=== PATIENT | male | born 1980 | race American Indian/Alaskan Native ===

== ENCOUNTER 2016-11-04 11:07 | Emergency (ER) | payer BC ==
[2016-11-04 12:13] LABS: Basophils % (Auto) 0.4 % (0.0-1.8); Eosinophils % (Auto) 0.1 % (0.0-4.3); Hematocrit 49.7 % (35.5-45.6); Hemoglobin 17.4 gm/dl (11.8-15.2); Mean Corpuscular HGB Conc 35 % (32-34); Mean Corpuscular Hemoglobin 30 pg (28-32); Mean Corpuscular Volume 87 fl (84-94); Platelet Count 144 K/mm3 (140-440); Red Blood Count 5.73 M/mm3 (3.65-5.03); Red Cell Distribution Width 13.2 % (13.2-15.2); White Blood Count 3.8 K/mm3 (4.5-11.0)
[2016-11-04 12:23] LABS: Alanine Aminotransferase 56 units/L (7-56); Albumin 4.8 g/dL (3.9-5); Albumin/Globulin Ratio 1.5 %; Alkaline Phosphatase 53 units/L (35-129); Anion Gap 18 mmol/L; BUN/Creatinine Ratio 13.33; Bilirubin,Total 0.4 mg/dL (0.1-1.2); Blood Urea Nitrogen 12 mg/dL (9-20); Calcium 9.3 mg/dL (8.4-10.2); Carbon Dioxide 25 mmol/L (22-30); Chloride 93.9 mmol/L (98-107); Glucose 97 mg/dL (75-100); Lipase 29 units/L (13-60); Potassium 4.4 mmol/L (3.6-5.0); Sodium 132 mmol/L (137-145)
[2016-11-04 12:56] LABS: Bilirubin,Urine NEG (Negative); Blood,Urine SM (Negative); Ketones,Urine TR mg/dL (Negative); Leukocyte Esterase,Urine NEG (Negative); Mucus,Urine 1+ /HPF; Nitrite,Urine NEG (Negative); Urobilinogen,Urine < 2.0 mg/dL (<2.0)
[2016-11-04] MEDS ORDERED: BENTYL IM ONE (14:17)
[2016-11-04] MEDS ORDERED: TYLENOL PO ONE (14:17)
[2016-11-04] MEDS ORDERED: ZOFRAN IV ONE (14:17)
[2016-11-04] MEDS ORDERED: NACL 0.9% 1000 ML 1,000 ML IV ONE (14:17)
[2016-11-04] MEDS ORDERED: ALUM-MAG HYDROX-SIMETH 200-200-20MG/5ML PO ONE (14:17)
[2016-11-04] MEDS ORDERED: TORADOL IV ONE (14:17)
[2016-11-04] MEDS ORDERED: PEPCID IV ONE (14:17)
--- NOTE | 2016-11-04 14:17 | Emergency Department Report ---
ED General Adult HPI - General Chief complaint: Abdominal Pain Stated complaint: WEAK/HAVENT ATE IN 1WK Time Seen by Provider: 11/04/16 14:09 Source: patient, RN notes reviewed Mode of arrival: Ambulatory Limitations: No Limitations - History of Present Illness Initial comments: This is a 36-year-old male. He is previously unknown to me. His primary care doctor is Dr. Schwartz. He presents to the ER complaining of nausea and vomiting and diarrhea. He reports 3 episodes of green/brownish emesis. He reports 10- 15 episodes of brownish diarrhea. This is been over the past 24-48 hours. To me he denies abdominal pain. He denies irritative and obstructive urinary symptoms, he denies testicular pain. Denies recent travel, denies recent antibiotic use. He complains of generalized malaise and weakness. Symptoms are constant. They don't seem to have any exacerbating or relieving factors. There is no association when the patient takes a hot and/or warm shower. -: Gradual Severity scale (0 -10): 0 Consistency: intermittent Improves with: none Worsens with: none Associated Symptoms: malaise, nausea/vomiting, weakness. denies: confusion, chest pain, cough, diaphoresis - Related Data Home Medications Medication Instructions Recorded Confirmed Last Taken amLODIPine [Norvasc] 5 mg PO DAILY 11/04/16 11/04/16 Unknown Previous Rx's Medication Instructions Recorded Last Taken Type Dicyclomine [Bentyl] 10 mg PO QID PRN #20 capsule 11/04/16 Unknown Rx Famotidine [Pepcid] 20 mg PO QDAY #30 tablet 11/04/16 Unknown Rx Ondansetron [Zofran Odt] 4 mg PO QID PRN #20 tab.rapdis 11/04/16 Unknown Rx Allergies Allergy/AdvReac Type Severity Reaction Status Date / Time Penicillins Allergy Rash Verified 11/04/16 11:24 ED Review of Systems ROS: Stated complaint: WEAK/HAVENT ATE IN 1WK Other details as noted in HPI Constitutional: malaise. denies: fever Eyes: denies: vision change Respiratory: denies: cough, shortness of breath Cardiovascular: denies: chest pain Gastrointestinal: nausea, vomiting, diarrhea Genitourinary: denies: urgency, dysuria, frequency, testicular pain Musculoskeletal: myalgia Skin: denies: lesions Neurological: weakness Psychiatric: denies: anxiety ED Past Medical Hx - Past Medical History Hx Hypertension: Yes Hx CVA: Yes (no residuel effects) - Social History Smoking Status: Never Smoker Substance Use Type: Alcohol, Marijuana - Medications Home Medications: Home Medications Medication Instructions Recorded Confirmed Last Taken Type Dicyclomine [Bentyl] 10 mg PO QID PRN #20 capsule 11/04/16 Unknown Rx Famotidine [Pepcid] 20 mg PO QDAY #30 tablet 11/04/16 Unknown Rx Ondansetron [Zofran Odt] 4 mg PO QID PRN #20 tab.rapdis 11/04/16 Unknown Rx amLODIPine [Norvasc] 5 mg PO DAILY 11/04/16 11/04/16 Unknown History ED Physical Exam - General Limitations: No Limitations General appearance: alert, in no apparent distress - Head Head exam: Present: atraumatic, normocephalic - Eye Eye exam: Present: normal appearance, EOMI. Absent: nystagmus - ENT ENT exam: Present: normal exam, normal orophraynx, mucous membranes moist, normal external ear exam - Neck Neck exam: Present: normal inspection, full ROM. Absent: tenderness, meningismus - Respiratory Respiratory exam: Present: normal lung sounds bilaterally. Absent: respiratory distress, wheezes, rales, rhonchi, stridor, decreased breath sounds - Cardiovascular Cardiovascular Exam: Present: regular rate, normal rhythm, normal heart sounds. Absent: bradycardia, tachycardia, irregular rhythm, systolic murmur, diastolic murmur, rubs, gallop - GI/Abdominal GI/Abdominal exam: Present: soft, normal bowel sounds. Absent: distended, tenderness, guarding, rebound, rigid, pulsatile mass - Rectal Rectal exam: Present: deferred - Extremities Exam Extremities exam: Present: normal inspection, full ROM, normal capillary refill. Absent: tenderness, pedal edema, joint swelling, calf tenderness - Back Exam Back exam: Present: normal inspection, full ROM. Absent: tenderness, CVA tenderness (R), CVA tenderness (L), muscle spasm, paraspinal tenderness, vertebral tenderness - Neurological Exam Neurological exam: Present: alert, oriented X3, normal gait, other (Extraocular movements intact. Tongue midline. No facial droop. Facial sensation intact to light touch in the V1, V2, V3 distribution bilaterally. 5 and 5 strength in 4 extremities.. Sensation is intact to light touch in 4 extremities.). Absent : motor sensory deficit - Psychiatric Psychiatric exam: Present: normal affect, normal mood - Skin Skin exam: Present: warm, dry, intact, normal color. Absent: rash ED Course Vital Signs 11/04/16 11/04/16 11/04/16 11:20 13:16 13:21 Temperature 99.6 F 99.8 F H Pulse Rate 107 H 92 H Respiratory 20 16 16 Rate Blood Pressure 149/99 Blood Pressure 138/84 [Left] O2 Sat by Pulse 100 100 100 Oximetry 11/04/16 15:18 Temperature 99.2 F Pulse Rate 88 Respiratory 16 Rate Blood Pressure Blood Pressure 122/78 [Left] O2 Sat by Pulse 100 Oximetry - Reevaluation(s) Reevaluation #1: 11/04/16 15:51 Differential diagnosis: GERD, gastritis, gastroenteritis, dehydration, viral syndrome Assessment and plan: 36-year-old male with reported generalized weakness, nausea , vomiting and diarrhea. He is afebrile with reassuring vital signs, his tachycardia has resolved, his abdomen is soft on multiple serial examinations, without rebound, guarding or peritoneal signs. He was treated aggressively and symptomatically, he reports marked improvement in his symptoms, and on his final reassessment he reports that he is ready to go, and is noted to be playing with a cellular phone. He tolerated liquid feeds in the emergency department. He will be discharged with nonnarcotic pain medication, nausea medication, instructions to follow up with outpatient primary care. Of note, I have observed the patient for a few hours, and have seen no active episodes of vomiting or diarrhea. He has no irritative or obstructive urinary symptoms, he has no testicular pain, there is no complaint of abdominal pain to me, therefore I don't believe a testicular exam is emergently indicated. ED Medical Decision Making - Lab Data Result diagrams: 11/04/16 11:52 11/04/16 11:52 Vital Signs 11/04/16 11/04/16 11/04/16 11:20 13:16 13:21 Temperature 99.6 F 99.8 F H Pulse Rate 107 H 92 H Respiratory 20 16 16 Rate Blood Pressure 149/99 Blood Pressure 138/84 [Left] O2 Sat by Pulse 100 100 100 Oximetry 04/01/17 15:18 Temperature 99.2 F Pulse Rate 88 Respiratory 16 Rate Blood Pressure Blood Pressure 122/78 [Left] O2 Sat by Pulse 100 Oximetry Lab Results 11/04/16 11/04/16 11/04/16 Range/Units 11:52 11:52 12:19 WBC 3.8 L (4.5-11.0) K/mm3 RBC 5.73 H (3.65-5.03) M/mm3 Hgb 17.4 H (11.8-15.2) gm/dl Hct 49.7 H (35.5-45.6) % MCV 87 (84-94) fl MCH 30 (28-32) pg MCHC 35 H (32-34) % RDW 13.2 (13.2-15.2) % Plt Count 144 (140-440) K/mm3 Lymph % (Auto) 16.7 (13.4-35.0) % [place] % (Auto) 15.6 H (0.0-7.3) % Eos % (Auto) 0.1 (0.0-4.3) % Baso % (Auto) 0.4 (0.0-1.8) % Lymph # 0.6 L (1.2-5.4) K/mm3 [place] # 0.6 (0.0-0.8) K/mm3 Eos # 0.0 (0.0-0.4) K/mm3 Baso # 0.0 (0.0-0.1) K/mm3 Seg Neutrophils % 67.2 (40.0-70.0) % Seg Neutrophils # 2.6 (1.8-7.7) K/mm3 Sodium 132 L (137-145) mmol/L Potassium 4.4 (3.6-5.0) mmol/L Chloride 93.9 L (98-107) mmol/L Carbon Dioxide 25 (22-30) mmol/L Anion Gap 18 mmol/L BUN 12 (9-20) mg/dL Creatinine 0.9 (0.8-1.5) mg/dL Estimated GFR > 60 ml/min BUN/Creatinine Ratio 13.33 % Glucose 97 (75-100) mg/dL Calcium 9.3 (8.4-10.2) mg/dL Total Bilirubin 0.4 (0.1-1.2) mg/dL AST 49 H (5-40) units/L ALT 56 (7-56) units/L Alkaline Phosphatase 53 (35-129) units/L Total Protein 8.0 (6.3-8.2) g/dL Albumin 4.8 (3.9-5) g/dL Albumin/Globulin Ratio 1.5 % Lipase 29 (13-60) units/L Urine Color Yellow (Yellow) Urine Turbidity Clear (Clear) Urine pH 5.0 (5.0-7.0) Ur Specific [place] 1.020 (1.003-1.030) Urine Protein 100 mg/dl (Negative) mg/dL Urine Glucose (UA) Neg (Negative) mg/dL Urine Ketones Tr (Negative) mg/dL Urine Blood Sm (Negative) Urine Nitrite Neg (Negative) Urine Bilirubin Neg (Negative) Urine Urobilinogen < 2.0 (<2.0) mg/dL Ur Leukocyte Esterase Neg (Negative) Urine WBC (Auto) 3.0 (0.0-6.0) /HPF Urine RBC (Auto) 1.0 (0.0-6.0) /HPF U Epithel Cells (Auto) < 1.0 (0-13.0) /HPF Urine Mucus 1+ /HPF Critical care attestation.: If time is entered above; I have spent that time in minutes in the direct care of this critically ill patient, excluding procedure time. ED Disposition Clinical Impression: Nausea & vomiting Disposition: DISCHARGED TO HOME OR SELFCARE Is pt being admited?: No Does the pt Need Aspirin: No Condition: Stable Instructions: Gastroenteritis (ED), Acute Nausea and Vomiting (ED) Additional Instructions: Take nausea medication, pain medication as directed. Follow up with her primary care doctor within a week to 10 days. Return to the ER right away if pain, worsened pain, migration of pain, intractable nausea or vomiting, inability to tolerate liquid feeds, new, worsening or different symptoms. Referrals: LURDES SCHWARTZ MD [Primary Care Provider] - 3-5 Days
[2016-11-04 16:18] VITALS: BP 120/79
== END 2016-11-04 16:25 | disposition home or self-care (01) ==
LOC: ED 11:07
DX: R11.2 Nausea with vomiting, unspecified (principal); I10 Essential (primary) hypertension; Z86.73 Personal history of transient ischemic attack (TIA), and cerebral infarction without residual deficits; F12.10 Cannabis abuse, uncomplicated; Z88.0 Allergy status to penicillin
CPT/HCPCS: 36415; 80053; 81001; 83690; 85025; 96361; 96372; 96374; 96375; 99283; J0500; J1885; J2405; J7030

== ENCOUNTER 2018-03-19 12:12 | Emergency (ER) | payer BC ==
[2018-03-19 12:19] VITALS: BP 129/96
--- NOTE | 2018-03-19 14:19 | Emergency Department Report ---
ED Extremity Problem HPI - General Chief complaint: Extremity Injury, Upper Stated complaint: SHOULDER PAIN Time Seen by Provider: 03/19/18 13:55 Source: patient Mode of arrival: Ambulatory Limitations: No Limitations - History of Present Illness Initial comments: Patient is a 38-year-old male who is presenting with right shoulder pain. Patient states that yesterday he fell from a ladder. He was 3 rungs up and fell backwards and 1 he was falling brace to self by reaching behind him with his right upper extremity. Patient has pain at the right shoulder with movement only. The patient states the pain is aching in 10 out 10. Patient denies any other injury at this time. - Related Data Home Medications Medication Instructions Recorded Confirmed Last Taken amLODIPine [Norvasc] 5 mg PO DAILY 11/04/16 11/04/16 Unknown Previous Rx's Medication Instructions Recorded Last Taken Type Dicyclomine [Bentyl] 10 mg PO QID PRN #20 capsule 11/04/16 Unknown Rx Famotidine [Pepcid] 20 mg PO QDAY #30 tablet 11/04/16 Unknown Rx Ondansetron [Zofran Odt] 4 mg PO QID PRN #20 tab.rapdis 11/04/16 Unknown Rx HYDROcodone/APAP 5-325 [[place] 1 each PO Q6HR PRN #15 tablet 03/19/18 Unknown Rx 5/325] Ibuprofen [Motrin] 600 mg PO Q8H PRN #20 tablet 03/19/18 Unknown Rx methOCARBAMOL [Robaxin TAB] 500 mg PO Q6H PRN #15 tablet 03/19/18 Unknown Rx predniSONE [Deltasone] 20 mg PO QDAY #5 tab 03/19/18 Unknown Rx Allergies Allergy/AdvReac Type Severity Reaction Status Date / Time Penicillins Allergy Rash Verified 11/04/16 11:24 ED Review of Systems ROS: Stated complaint: SHOULDER PAIN Other details as noted in HPI Comment: All other systems reviewed and negative ED Past Medical Hx - Past Medical History Hx Hypertension: Yes Hx CVA: Yes (no residuel effects) - Surgical History Past Surgical History?: No - Social History Smoking Status: Never Smoker Substance Use Type: None - Medications Home Medications: Home Medications Medication Instructions Recorded Confirmed Last Taken Type Dicyclomine [Bentyl] 10 mg PO QID PRN #20 capsule 11/04/16 Unknown Rx Famotidine [Pepcid] 20 mg PO QDAY #30 tablet 11/04/16 Unknown Rx Ondansetron [Zofran Odt] 4 mg PO QID PRN #20 tab.rapdis 11/04/16 Unknown Rx amLODIPine [Norvasc] 5 mg PO DAILY 11/04/16 11/04/16 Unknown History HYDROcodone/APAP 5-325 [[place] 1 each PO Q6HR PRN #15 tablet 03/19/18 Unknown Rx 5/325] Ibuprofen [Motrin] 600 mg PO Q8H PRN #20 tablet 03/19/18 Unknown Rx methOCARBAMOL [Robaxin TAB] 500 mg PO Q6H PRN #15 tablet 03/19/18 Unknown Rx predniSONE [Deltasone] 20 mg PO QDAY #5 tab 03/19/18 Unknown Rx ED Physical Exam - General Limitations: No Limitations General appearance: alert, in no apparent distress - Head Head exam: Present: atraumatic, normocephalic - Eye Eye exam: Present: normal appearance - ENT ENT exam: Present: mucous membranes moist - Neck Neck exam: Present: normal inspection - Respiratory Respiratory exam: Present: normal lung sounds bilaterally. Absent: respiratory distress, wheezes, rales, rhonchi - Cardiovascular Cardiovascular Exam: Present: regular rate, normal rhythm. Absent: systolic murmur, diastolic murmur, rubs, gallop - GI/Abdominal GI/Abdominal exam: Present: soft, normal bowel sounds - Rectal Rectal exam: Present: deferred - Extremities Exam Extremities exam: Present: normal inspection, other (patient has no tenderness of the right clavicle there is no deformity to the right shoulder and right deltoid. Patient does have full range of motion passively but states he doesn' t want to move his right shoulder secondary to pain.) - Back Exam Back exam: Present: normal inspection - Neurological Exam Neurological exam: Present: alert, oriented X3 - Psychiatric Psychiatric exam: Present: normal affect, normal mood - Skin Skin exam: Present: warm, dry, intact, normal color. Absent: rash ED Course Vital Signs 03/19/18 12:16 Temperature 98.3 F Pulse Rate 76 Respiratory 16 Rate Blood Pressure 129/96 O2 Sat by Pulse 100 Oximetry Critical care attestation.: If time is entered above; I have spent that time in minutes in the direct care of this critically ill patient, excluding procedure time. ED Disposition Clinical Impression: Rotator cuff injury Qualifiers: Encounter type: initial encounter Laterality: right Qualified Code(s): S46.001A - Unspecified injury of muscle(s) and tendon(s) of the rotator cuff of right shoulder, initial encounter Disposition: TO HOME OR SELFCARE Is pt being admited?: No Does the pt Need Aspirin: No Condition: Stable Instructions: Rotator Cuff Injury (ED) Referrals: REMINGTON BUSTOS MD [Staff Physician] - 3-5 Days Time of Disposition: 14:21
== END 2018-03-19 14:28 | disposition home or self-care (01) ==
LOC: ED 12:12
DX: S46.001A Unspecified injury of muscle(s) and tendon(s) of the rotator cuff of right shoulder, initial encounter (principal); I10 Essential (primary) hypertension; Z86.73 Personal history of transient ischemic attack (TIA), and cerebral infarction without residual deficits; Z79.899 Other long term (current) drug therapy; W11.XXXA Fall on and from ladder, initial encounter; Y93.89 Activity, other specified; Y99.8 Other external cause status; Y92.89 Other specified places as the place of occurrence of the external cause
CPT/HCPCS: 99283